=== PATIENT | female | born 1960 | race Two or more races ===

== ENCOUNTER 2017-06-06 17:30 | Emergency (ER) | payer MEDICAID ==
[~2017-06-06] VITALS: Ht 165.1 cm; Wt 90.0 kg
[2017-06-06] MEDS ORDERED: KETOROLAC 60MG/2ML VIAL IM ONE (19:00)
[2017-06-06 19:07] VITALS: BP 166/81
== END 2017-06-06 20:19 | disposition home or self-care (01) ==
LOC: ER 18:16
DX: R51 Headache (principal)
CPT/HCPCS: 96372; 99283; J1885; Z7610